=== PATIENT | female | born 1945 | race Caucasian/White ===

== ENCOUNTER 2021-02-26 07:28 | Day surgery (SDC) | payer OTHER ==
[2021-02-21 16:13] VITALS: BMI 30.2
[2021-02-26] MEDS ORDERED: PROPOFOL 20 ML ONE ×4 (08:44)
[2021-02-26] MEDS ORDERED: LIDOCAINE HCL/PF 2% SDV 5ML VIAL ONE (08:44)
[2021-02-26 17:01] VITALS: TEMP 97.8
[2021-02-26 17:07] VITALS: BP 119/64; PULSE 56
== END 2021-02-26 09:45 | disposition home or self-care (01) ==
LOC: FASU-ENDO 07:28
PROVIDERS: ATTEND Internal Medicine Gastroenterology
PROC: 0DB68ZX Excision of Stomach, Via Natural or Artificial Opening Endoscopic, Diagnostic (ICD-10-PCS; 2021-02-26)
PROC: 0DB48ZX Excision of Esophagogastric Junction, Via Natural or Artificial Opening Endoscopic, Diagnostic (ICD-10-PCS; 2021-02-26)
PROC: 0DB98ZX Excision of Duodenum, Via Natural or Artificial Opening Endoscopic, Diagnostic (ICD-10-PCS; principal; 2021-02-26 08:54)
DX: K20.90 Esophagitis, unspecified without bleeding (principal); K31.9 Disease of stomach and duodenum, unspecified; Z87.19 Personal history of other diseases of the digestive system